=== PATIENT | male | born 1995 | race Caucasian/White ===

== ENCOUNTER 2018-05-22 08:23 | Emergency (ER) | payer BC, OTHER ==
[2018-05-22 09:19] LABS: #Basophils 0.1 thou/uL (0.0-0.2); #Eosinphils 0.2 thou/uL (0.0-0.7); #Lymphocytes 1.8 thou/uL (1.20-3.40); #Monocytes 0.5 thou/uL (0.11-0.59); %Basophils 1.2 % (0.0-1.0); %Eosinophils 2.8 % (0.0-10.0); %Lymphocytes 23.5 % (21.0-51.0); %Monocytes 6.8 % (0.0-10.0); %Neutrophils 65.8 % (42.0-75.0); Hemoglobin 14.9 g/dL (14.0-18.0); Mean Corpuscular Hemoglobin 28.2 pg (27.0-31.0); Mean Corpuscular Volume 88.2 fL (78.0-98.0); Mean Platelet Volume 7.2 fL (7.4-10.4); Platelet Count 239 thou/uL (130-400); RBC Distribution Width 11.8 % (11.5-14.5); Red Blood Cell (RBC) Count 5.27 mill/uL (4.70-6.10); White Blood Cell (WBC) Count 7.6 thou/uL (4.8-10.8)
[2018-05-22 09:31] LABS: ALT (SGPT) 28 U/L (8-55); Albumin 4.6 g/dL (3.5-5.0); Alkaline Phosphatase 63 U/L (40-150); Anion Gap 14 mmol/L (10-20); BUN (Urea Nitrogen) 12 mg/dL (8.9-20.6); Bilirubin, Total 0.3 mg/dL (0.2-1.2); Calc. Creatinine Clearance 0 mL/min (70-130); Calcium 9.2 mg/dL (7.8-10.44); Carbon Dioxide 23 mmol/L (22-29); Chloride 109 mmol/L (98-107); Estimated GFR-MDRD Greater than 90; Globulin 2.8 g/dL (2.4-3.5); Glucose 106 mg/dL (70-105); Potassium 4.8 mmol/L (3.5-5.1); Protein, Total 7.4 g/dL (6.0-8.3); Sodium 141 mmol/L (136-145)
[2018-05-22 09:33] LABS: AST (SGOT) 28 U/L (5-34)
--- NOTE | 2018-05-22 10:17 | CT ---
HEAD CT NONCONTRAST: Indication: Syncope. FINDINGS: Ventricular system is normal in size. Septum pellucidum are midline. No acute intracranial hemorrhage , mass, or midline shift. Imaged paranasal sinuses are clear. IMPRESSION: No acute intracranial abnormality. POS: [facility]
== END 2018-05-22 10:10 | disposition home or self-care (01) ==
LOC: SCSER 08:23
DX: R55 Syncope and collapse (principal); R20.2 Paresthesia of skin; F31.9 Bipolar disorder, unspecified
CPT/HCPCS: 70450; 80053; 84484; 85025; 93005; 96360

== ENCOUNTER 2022-10-11 18:00 | Outpatient (CLI) | payer BC | END 2022-10-11 18:01 | disposition home or self-care (01) | LOC: SLEEPLAB 18:00 | PROVIDERS: ATTEND Family Medicine | DX: G47.33 Obstructive sleep apnea (adult) (pediatric) (principal); G47.9 Sleep disorder, unspecified; R06.83 Snoring; R53.83 Other fatigue | CPT/HCPCS: 95800 ==